=== PATIENT | female | born 1980 | race Two or more races ===

== ENCOUNTER → 2020-02-25 | Outpatient (CLI) | payer OTHER | END | disposition home or self-care (01) | LOC: PRENATAL 09:30 | PROVIDERS: ATTEND Obstetrics & Gynecology Obstetrics | DX: O35.3XX1 Maternal care for (suspected) damage to fetus from viral disease in mother, fetus 1 (principal); O34.211 Maternal care for low transverse scar from previous cesarean delivery; O09.522 Supervision of elderly multigravida, second trimester ==

== ENCOUNTER 2020-07-07 01:11 | Inpatient (IN) | payer OTHER ==
[~2020-07-07] VITALS: Ht 152.4 cm; Wt 3.2 kg
[2020-07-08] MEDS ORDERED: ATABEX OB TABL1 EACH (08:56)
== END 2020-07-10 14:17 | disposition home or self-care (01) | DRG 788 ==
LOC: OBS/DEL 01:11 → OB/GYN 07:35 → LDR 07:35 → O/R 10:26 → OB/GYN 11:35
PROVIDERS: ADMIT Obstetrics & Gynecology Obstetrics; ATTEND Obstetrics & Gynecology Obstetrics
PROC: 4A1HXFZ Monitoring of Products of Conception, Cardiac Rhythm, External Approach (ICD-10-PCS; 2020-07-07)
PROC: 10D00Z1 Extraction of Products of Conception, Low, Open Approach (ICD-10-PCS; principal; 2020-07-07 08:30)
DX: O82 Encounter for cesarean delivery without indication (principal); O34.211 Maternal care for low transverse scar from previous cesarean delivery; Z3A.38 38 weeks gestation of pregnancy; Z37.0 Single live birth

== ENCOUNTER 2022-02-25 10:23 | Outpatient (CLI) | payer OTHER ==
[~2022-02-25 10:23] MED LIST: ATABEX OB TABL1 EACH
== END 2022-02-25 11:20 | disposition home or self-care (01) ==
LOC: PRENATAL 10:23
PROVIDERS: ATTEND Obstetrics & Gynecology Maternal & Fetal Medicine
DX: O36.80X0 Pregnancy with inconclusive fetal viability, not applicable or unspecified (principal); O09.529 Supervision of elderly multigravida, unspecified trimester; O34.219 Maternal care for unspecified type scar from previous cesarean delivery; Z3A.12 12 weeks gestation of pregnancy

== ENCOUNTER 2022-04-22 08:04 | Outpatient (CLI) | payer OTHER | END 2022-04-22 09:15 | disposition home or self-care (01) | LOC: PRENATAL 08:04 | PROVIDERS: ATTEND Obstetrics & Gynecology Maternal & Fetal Medicine | DX: O35.0XX0 Maternal care for (suspected) central nervous system malformation in fetus, not applicable or unspecified (principal); O35.3XX0 Maternal care for (suspected) damage to fetus from viral disease in mother, not applicable or unspecified; O09.529 Supervision of elderly multigravida, unspecified trimester; O34.219 Maternal care for unspecified type scar from previous cesarean delivery; Z3A.20 20 weeks gestation of pregnancy ==

== ENCOUNTER 2022-08-24 18:39 | Inpatient (IN) | payer OTHER ==
[~2022-08-24] VITALS: Ht 152.4 cm; Wt 3.2 kg
== END 2022-08-27 15:19 | disposition home or self-care (01) | DRG 788 ==
LOC: OB/GYN 18:39 → LDR 18:39 → OB/GYN 21:32
PROVIDERS: ADMIT Obstetrics & Gynecology Obstetrics; ATTEND Obstetrics & Gynecology Obstetrics
PROC: 4A1HXCZ Monitoring of Products of Conception, Cardiac Rate, External Approach (ICD-10-PCS; 2022-08-24)
PROC: 10D00Z1 Extraction of Products of Conception, Low, Open Approach (ICD-10-PCS; principal; 2022-08-24 20:30)
DX: O34.211 Maternal care for low transverse scar from previous cesarean delivery (principal); Z3A.38 38 weeks gestation of pregnancy; Z37.0 Single live birth; Z20.822 Contact with and (suspected) exposure to COVID-19